=== PATIENT | male | born 1965 | race Caucasian/White ===

== ENCOUNTER 2025-07-05 13:59 | Emergency (ER) | payer BC, SELFPAY ==
[2025-07-05 14:08] VITALS: BP 178/75; PULSE 80; RESP 20; TEMP 36.7; O2SAT 100
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
== END 2025-07-05 14:52 | disposition home or self-care (01) ==
PROVIDERS: Emergency Provider Registered Nurse; PCP Registered Nurse
DX: M79.621 Pain in right upper arm (principal); M79.631 Pain in right forearm; M79.644 Pain in right finger(s); F17.290 Nicotine dependence, other tobacco product, uncomplicated; E78.00 Pure hypercholesterolemia, unspecified; F41.0 Panic disorder [episodic paroxysmal anxiety]; Z79.82 Long term (current) use of aspirin
CPT/HCPCS: 99213; G0463